=== PATIENT | male | born 1965 | race Caucasian/White ===

== ENCOUNTER 2016-11-15 16:53 | Inpatient (IN) | payer MEDICAID ==
[2016-11-15] MEDS ORDERED: ASPIRIN81 M1 PO (17:17)
[2016-11-15] MEDS ORDERED: LISINOPRIL20 M1 PO (17:17)
[2016-11-15] MEDS ORDERED: LIPITOR10 M1 PO (17:19)
[2016-11-15] MEDS ORDERED: LEVEMIR100 UNITS/ SC (17:22)
[2016-11-15 19:49] LABS: BASO % 0.2 % (0-2); EOS % 1.1 % (0-7); EOSINOPHIL ABSOLUTE COUNT 0.1 tho/cmm (0.0-0.7); HCT-HEMATOCRIT 43.6 % (36.0-53.5); HGB-HEMOGLOBIN 15.7 gm/dl (13.5-17.0); IMMATURE GRANULOCYTES ABSOLUTE 0.03 tho/cmm (0-0.03); IMMATURE GRANULOCYTES PERCENT 0.4 % (0-0.3); LYMPH % 27.3 % (20-45); LYMPH ABSOLUTE COUNT 2.2 tho/cmm (0.8-4.5); MCV (MEAN CELL VOLUME) 83.4 fl (82.0-96.0); MEAN PLATELET VOLUME 8.9 cmc (9.4-12.4); MONOCYTE ABSOLUTE COUNT 0.6 tho/cmm (0.0-1.2); NEUTROPHIL ABSOLUTE COUNT 5.2 tho/cmm (1.6-8.0); NEUTROPHIL-AUTOMATED 5.2 tho/cmm (1.6-8.0); PLATELET COUNT 229 tho/cmm (150-450); RED BLOOD COUNT 5.23 mil/cmm (4.40-5.70); RED CELL DISTRIBUTION WIDTH 12.4 % (12.4-16.4); WHITE BLOOD COUNT 8.1 tho/cmm (4.0-10.0)
[2016-11-15 19:53] LABS: INR 1.1 INR (0.9-1.1); PROTHROMBIN TIME 13.1 SECONDS (9.0-13.6)
[2016-11-15 20:09] LABS: ALB/GLOB RATIO 0.9 (0.8-2.0); ALBUMIN 3.6 g/dl (3.5-5.0); ALKALINE PHOSPHATASE 127 U/L (33-138); ALT/SGPT 64 U/L (12-78); ANION GAP 14 mmol/L (0-20); AST/SGOT 49 U/L (10-40); BILIRUBIN,TOTAL 0.5 mg/dl (0.0-1.5); BLOOD UREA NITROGEN 29 mg/dl (6-24); CALCIUM 8.8 mg/dl (8.5-10.5); CARBON DIOXIDE-VENOUS 25 mmol/L (22-32); CHLORIDE 100 mmol/l (96-110); CREATININE 1.24 mg/dl (0.60-1.30); GLUCOSE 260 mg/dL (70-110); POTASSIUM 3.6 mmol/L (3.7-5.1); SODIUM 135 mmol/L (135-145); eGFR VALUE FOR BLACK 78 mL/Min
[2016-11-15] MEDS ORDERED: NORVASC5 M2 PO (20:17)
[2016-11-15] MEDS ORDERED: INVOKANA300 MG PO (20:18)
[2016-11-15] MEDS ORDERED: LISINOPRIL-HCT1 EAC1 PO (20:19)
[2016-11-15] MEDS ORDERED: HYDROCODON-ACE1 EA16 PO (20:19)
[2016-11-15] MEDS ORDERED: ULTRAM50 M1 PO (20:20)
[2016-11-15] MEDS ORDERED: COUMADIN10 M1 PO (20:20)
[2016-11-15] MEDS ORDERED: LIPITOR40 M1 PO (20:21)
[2016-11-16 04:30] LABS: CHOLESTEROL 217 mg/dl (120-200); HDL CHOLESTEROL 33 mg/dl (40-60); VLDL 131 mg/dl (0-30)
[2016-11-16 04:40] LABS: TRIGLYCERIDES 655 mg/dl (<149)
[2016-11-16 04:44] LABS: INR 1.1 INR (0.9-1.1); PROTHROMBIN TIME 12.3 SECONDS (9.0-13.6)
[2016-11-17 03:00] LABS: INR 1.2 INR (0.9-1.1); PROTHROMBIN TIME 14.3 SECONDS (9.0-13.6)
[2016-11-17] MEDS ORDERED: TRICOR145 M2 PO (13:50)
[2016-11-17] MEDS ORDERED: LIPITOR40 M1 PO (13:50)
[2016-11-17] MEDS ORDERED: LOVENOX150 MG/1 M (13:50)
[2016-11-17] MEDS ORDERED: GLUCOTROL5 M1 PO (13:51)
[2016-11-17] MEDS ORDERED: INVOKANA300 MG PO (13:51)
[2016-11-17] MEDS ORDERED: LEVEMIR100 UNITS/ SC (13:51)
[2016-11-17] MEDS ORDERED: DELTASONE20 MG PO (14:57)
== END 2016-11-17 15:10 | DRG 65 ==
LOC: 5EB 16:53
PROVIDERS: Internal Medicine; ADMIT Family Medicine
PROC: 5A09357 Assistance with Respiratory Ventilation, Less than 24 Consecutive Hours, Continuous Positive Airway Pressure (ICD-10-PCS; principal; 2016-11-15)
DX: I63.40 Cerebral infarction due to embolism of unspecified cerebral artery (principal); L02.214 Cutaneous abscess of groin; E11.65 Type 2 diabetes mellitus with hyperglycemia; I10 Essential (primary) hypertension; Z68.42 Body mass index [BMI] 45.0-49.9, adult; Z95.2 Presence of prosthetic heart valve; Z79.01 Long term (current) use of anticoagulants; Z79.4 Long term (current) use of insulin; E78.5 Hyperlipidemia, unspecified; F17.210 Nicotine dependence, cigarettes, uncomplicated; I25.10 Atherosclerotic heart disease of native coronary artery without angina pectoris; G47.33 Obstructive sleep apnea (adult) (pediatric); R47.81 Slurred speech; E66.01 Morbid (severe) obesity due to excess calories; Z88.8 Allergy status to other drugs, medicaments and biological substances; Z79.82 Long term (current) use of aspirin; Z79.02 Long term (current) use of antithrombotics/antiplatelets; Z91.14 Patient's other noncompliance with medication regimen
CPT/HCPCS: G8978-GP-CJ; G8979-GP-CJ; G8980-GP-CJ; G8987-GO-CI; G8988-GO-CI; G8989-GO-CI; J1644; J1815; J2543; J7050